=== PATIENT | female | born 1965 | race Caucasian/White ===

== ENCOUNTER 2018-03-16 13:25 | Observation (INO) | payer MEDICARE, MEDICAID ==
[2018-03-16] MEDS ORDERED: KETOROLAC TROMETHAMINE 60 MG/2 ML SDV IM ONE (13:47)
--- NOTE | 2018-03-16 13:48 | ER Document Report ---
ED Medical Screen (RME) - General Chief Complaint: Altered Mental Status Stated Complaint: ALTERED MENTAL STATUS Time Seen by Provider: 03/16/18 13:45 Notes: 52 years old female with a history of cervical spine surgery woke up this morning with drowsy headache neck pain. Therefore presented to the ED. Denies taking any pain medications. On examination appeared drowsy, not very cooperative. TRAVEL OUTSIDE OF THE [place] IN LAST 30 DAYS: No - Related Data Allergies/Adverse Reactions: erythromycin base Allergy (Verified 03/16/18 13:26) iodine Allergy (Verified 03/16/18 13:26) Physical Exam - Vital signs Vitals: Temp Pulse Resp BP Pulse Ox 97.8 F 123 H 20 168/103 H 98 03/16/18 13:29 03/16/18 13:29 03/16/18 13:29 03/16/18 13:29 03/16/18 13:29 Course - Vital Signs Vital signs: Temp Pulse Resp BP Pulse Ox 97.8 F 123 H 20 168/103 H 98 03/16/18 13:29 03/16/18 13:29 03/16/18 13:29 03/16/18 13:29 03/16/18 13:29
[2018-03-16 14:24] LABS: ABSOLUTE BASOPHILS # (AUTO) 0.1 10^3/uL (0.0-0.2); ABSOLUTE EOSINOPHILS # (AUTO) 0.1 10^3/uL (0.0-0.6); ABSOLUTE LYMPHOCYTES (AUTO) 2.9 10^3/uL (0.5-4.7); ABSOLUTE MONOCYTES (AUTO) 0.6 10^3/uL (0.1-1.4); ABSOLUTE NEUT (AUTO) 5.2 10^3/uL (1.7-8.2); BASOPHILS % (AUTO) 0.6 % (0-2); EOSINOPHILS % (AUTO) 1.5 % (0-6); HEMATOCRIT 43.4 % (36.0-47.0); HEMOGLOBIN 14.3 g/dL (12.0-15.5); LYMPHOCYTES % (AUTO) 32.5 % (13-45); MEAN CORPUSCULAR HEMOGLOBIN 29.3 pg (27.0-33.4); MEAN CORPUSCULAR VOLUME 89 fl (80-97); MONOCYTES % (AUTO) 6.5 % (3-13); PLATELET COUNT 251 10^3/uL (150-450); RED BLOOD COUNT 4.88 10^6/uL (3.72-5.28); RED CELL DISTRIBUTION WIDTH 15.2 % (11.5-14.0); SEGMENTED NEUTROPHILS % (AUTO) 58.9 % (42-78); TOTAL CELLS COUNTED % (AUTO) 100 %; WHITE BLOOD COUNT 8.8 10^3/uL (4.0-10.5)
--- NOTE | 2018-03-16 14:24 | RADIOLOGY REPORT (SQ) ---
EXAM DESCRIPTION: CT HEAD WITHOUT COMPLETED DATE/TIME: 03/16/2018 2:16 pm REASON FOR STUDY: Headache headache COMPARISON: None. TECHNIQUE: Axial images acquired through the brain without intravenous contrast. Images reviewed wi th bone, brain and subdural windows. Additional sagittal and coronal reconstructions were generated. Images stored on PACS. All CT scanners at this facility use dose modulation, iterative reconstruction, and/or weight based d osing when appropriate to reduce radiation dose to as low as reasonably achievable (ALARA). [facility]: Dose Right [facility]: CareDose [facility]: Dose Right [facility]: Teradose 4D [facility]: Ascender Software RADIATION DOSE: CT Rad equipment meets quality standard of care and radiation dose reduction techniq ues were employed. CTDIvol: 53.2 mGy. DLP: 991 mGy-cm. mGy. LIMITATIONS: None. FINDINGS: VENTRICLES: Normal size and contour. CEREBRUM: No masses. No hemorrhage. No midline shift. No evidence for acute infarction. Normal gra y/white matter differentiation. No areas of low density in the white matter. CEREBELLUM: No masses. No hemorrhage. No alteration of density. No evidence for acute infarction. EXTRAAXIAL SPACES: No fluid collections. No masses. ORBITS AND GLOBE: No intra- or extraconal masses. Normal contour of globe without masses. CALVARIUM: No fracture. PARANASAL SINUSES: No fluid or mucosal thickening. SOFT TISSUES: No mass or hematoma. OTHER: No other significant finding. IMPRESSION: NORMAL BRAIN CT WITHOUT CONTRAST. EVIDENCE OF ACUTE STROKE: NO. COMMENT: Quality ID # [id number]: Final reports with documentation of one or more dose reduction techniques (e.g., Automated exposure control, adjustment of the mA and/or kV according to patient size, use of iterative reconstruction technique) TECHNICAL DOCUMENTATION: JOB ID: [id number] [employer]- All Rights Reserved Reading location - IP/workstation name: [email or web address]
[2018-03-16] MEDS ORDERED: NORMAL SALINE 1000 ML 1,000 ML IV ONE (14:32)
[2018-03-16] MEDS ORDERED: MECLIZINE HCL 25 MG TABLET PO ONE (14:32)
--- NOTE | 2018-03-16 14:38 | ER Document Report ---
ED General - General Chief Complaint: Altered Mental Status Stated Complaint: ALTERED MENTAL STATUS Time Seen by Provider: 03/16/18 13:45 TRAVEL OUTSIDE OF THE [place] IN LAST 30 DAYS: No - HPI Notes: Patient is a 52-year-old female with a history of COPD, hypertension, chronic neck and back pain, previous CVAs with the last in 2012 who presents to the ED with mother complaining of headache (global, not worst of her life, not sudden like a thunder clap), increased neck pain, dizziness, fatigue/weakness, and some slurring of her speech that began at 0 700 this morning. Mother states that she noticed the mild slurring resolved after a couple hours. Patient states that she was out shopping with her grandmother when she decided to come to the emergency room for evaluation as her symptoms were not significantly improving. Patient states that she had similar symptoms with previous strokes. She had otherwise been eating and drinking without any difficulties. She is urinating normally and having normal bowel movements. Patient states that she has also had some intermittent chest tightness over the last week that does not radiate. Patient states that she currently does not have any chest discomfort, and primarily is focused on her other symptoms. She is not on any blood thinning medication currently. + post nasal drip. Denies any injury. Denies any fever, head injury, changes in vision/mentation/hearing, sore throat, palpitations, syncope, cough, shortness of breath, wheeze, dyspnea, abdominal pain, nausea/vomiting/diarrhea, urinary retention, dysuria, hematuria, loss of control of bowel or bladder, numbness/tingling, saddle anesthesia, muscle paralysis/weakness, or rash. - Related Data Allergies/Adverse Reactions: erythromycin base Allergy (Verified 03/16/18 13:26) iodine Allergy (Verified 03/16/18 13:26) Past Medical History - Social History Smoking Status: Current Every Day Smoker Family History: Reviewed & Not Pertinent Patient has suicidal ideation: No Patient has homicidal ideation: No Renal/ Medical History: Denies: Hx Peritoneal Dialysis Review of Systems - Review of Systems -: Yes All other systems reviewed and negative Physical Exam - Vital signs Vitals: Temp Pulse Resp BP Pulse Ox 97.8 F 123 H 20 168/103 H 98 03/16/18 13:29 03/16/18 13:29 03/16/18 13:29 03/16/18 13:29 03/16/18 13:29 Notes: Pt's pulse is 80 during my exam. Not tachycardic* - Notes Notes: PHYSICAL EXAMINATION: GENERAL: Well-appearing, well-nourished and in no acute distress. A&ox4. Answers questions appropriately, maintains eye contact. No obvious slurring noted. HEAD: Atraumatic, normocephalic. Non-tender. EYES: Pupils equal round and reactive to light, extraocular movements intact, sclera anicteric, conjunctiva are normal. No nystagmus. vis sawyer intact. ENT: EAC clear b/l. TM's intact b/l without erythema, fluid, or perforation. Nares patent and without discharge. oropharynx clear without exudates. No tonsilar hypertrophy or erythema. Moist mucous membranes. No sinus tenderness. NECK: Normal range of motion, supple without lymphadenopathy. No obvious rigidity/meningismus (pt has a fusion). No midline tenderness. + paraspinal mm tenderness, correlates with pain. Chest: + mild tenderness left chest wall, reproducible. LUNGS: Breath sounds clear to auscultation bilaterally and equal. No wheezes rales or rhonchi. HEART: Regular rate and rhythm without murmurs, rubs, gallops. ABDOMEN: Soft, nontender, nondistended abdomen. No guarding, no rebound. Normal bowel sounds present. No CVA tenderness bilaterally. Musculoskeletal: Ext b/l: FROM to passive/active. Strength 5+/5. No deficits noted. No bony tenderness of extremities. Extremities: No cyanosis, clubbing, or edema b/l. Peripheral pulses 2+. Capillary refill less than 2 seconds. Daisy neg b/l. No asymmetry. NEUROLOGICAL: NIH 0. GCS 15. Cranial nerves grossly intact. Normal speech, normal gait. Normal sensory, motor exams. Reflexes 2+ b/l. LAURA's negative. Pronator drift negative. Heel/moon, finger/nose wnl. PSYCH: Normal mood, normal affect. SKIN: Warm, Dry, normal turgor, no rashes or lesions noted. Course - Re-evaluation Re-evalutation: 03/16/18 15:28 Patient is an afebrile, well-hydrated, 52-year-old female who presents to the ED with chest wall pain/chest pain unspecified, dizziness, headache, resolved slurring speech. Vitals are acceptable without any significant tachycardia, tachypnea, or hypoxia. PE is otherwise unremarkable for any focal neurological deficits at this time. NIH 0, GCS 15, cranial nerves grossly intact. CT scan of the head was unremarkable as well as a chest x-ray. CBC, CMP, cardiac enzyme /EKG, coags, urinalysis were unremarkable for any acute pathology. Patient was given Toradol at triage. I did order for meclizine as well as fentanyl at this time. Fluids are running. I did review with patient that her symptoms are concerning for possible TIA and I am using more caution as she is a higher risk due to previous history. I did review with hospitalist, Dr. Chew, who accepted patient for admit. Patient is in agreement with plan. - Vital Signs Vital signs: Temp Pulse Resp BP Pulse Ox 97.8 F 80 16 121/75 97 03/16/18 13:29 03/16/18 14:20 03/16/18 15:01 03/16/18 15:01 03/16/18 15:01 - Laboratory Result Diagrams: 03/16/18 14:00 03/16/18 14:00 Laboratory results interpreted by me: 03/16/18 03/16/18 03/16/18 14:00 14:00 14:45 RDW 15.2 H Sodium 147.2 H Chloride 108 H Urine Ketones TRACE H Urine Urobilinogen 2.0 H Discharge - Discharge Clinical Impression: TIA (transient ischemic attack) Chest pain, unspecified Qualifiers: Chest pain type: unspecified Qualified Code(s): R07.9 - Chest pain, unspecified Headache Qualifiers: Headache type: unspecified Headache chronicity pattern: acute headache Intractability: not intractable Qualified Code(s): R51 - Headache Condition: Stable Disposition: ADMITTED INPATIENT Admitting Provider: Hospitalist - Dr. Chew Unit Admitted: [facility]
[2018-03-16] MEDS ORDERED: FENTANYL CITRATE INJ/PF 100 MCG/2 ML AMPUL IV ONE (14:41)
[2018-03-16 14:44] LABS: ALANINE AMINOTRANSFERASE 31 U/L (9-52); ALKALINE PHOSPHATASE 61 U/L (38-126); ANION GAP 11 (5-19); ASPARTATE AMINO TRANSFERASE 16 U/L (14-36); BILIRUBIN,DIRECT 0.3 mg/dL (0.0-0.4); BILIRUBIN,TOTAL 0.3 mg/dL (0.2-1.3); BLOOD UREA NITROGEN 17 mg/dL (7-20); CALCIUM 9.7 mg/dL (8.4-10.2); CARBON DIOXIDE 28 mmol/L (22-30); CHLORIDE 108 mmol/L (98-107); GLUCOSE 96 mg/dL (75-110); POTASSIUM 4.2 mmol/L (3.6-5.0); SODIUM 147.2 mmol/L (137-145); TOTAL PROTEIN 6.9 g/dL (6.3-8.2)
--- NOTE | 2018-03-16 15:00 | RADIOLOGY REPORT (SQ) ---
EXAM DESCRIPTION: CHEST SINGLE VIEW COMPLETED DATE/TIME: 03/16/2018 2:51 pm REASON FOR STUDY: chest pain COMPARISON: None. EXAM PARAMETERS: NUMBER OF VIEWS: One view. TECHNIQUE: Single frontal radiographic view of the chest acquired. RADIATION DOSE: NA LIMITATIONS: None. FINDINGS: LUNGS AND PLEURA: Minimal left basilar atelectasis. Remainder of the lungs are well infla elfego and free of focal infiltrates. No pleural effusion. No pneumothorax. MEDIASTINUM AND HILAR STRUCTURES: No masses. Contour normal. HEART AND VASCULAR STRUCTURES: Heart normal in size. Normal vasculature. BONES: Lower cervical fusion hardware HARDWARE: None in the chest. OTHER: No other significant finding. IMPRESSION: Minimal left basilar atelectasis or scarring TECHNICAL DOCUMENTATION: JOB ID: [id number] [employer]- All Rights Reserved Reading location - IP/workstation name: [email or web address]
[2018-03-16 15:04] LABS: INTERNATIONAL RATION (INR) 0.84; PROTHROMBIN TIME 11.9 SEC (11.4-15.4)
[2018-03-16 15:05] LABS: PARTIAL THROMBOPLASTIN TIME 26.9 SEC (23.5-35.8)
[2018-03-16 15:09] LABS: APPEARANCE,URINE SLIGHTLY-CLOUDY; BILIRUBIN,URINE NEGATIVE (NEGATIVE); COLOR,URINE YELLOW; GLUCOSE, URINE NEGATIVE (NEGATIVE); KETONES,URINE TRACE mg/dL (NEGATIVE); LEUKOCYTE ESTERASE,URINE NEGATIVE (NEGATIVE); NITRITE,URINE NEGATIVE (NEGATIVE); PROTEIN,URINE NEGATIVE (NEGATIVE); URINE SPECIFIC GRAVITY 1.026
[2018-03-16 15:12] LABS: ALCOHOL < 10 mg/dL (NONE DETECTED)
[2018-03-16 15:14] LABS: CREATINE KINASE MB 0.28 ng/mL (<4.55)
[2018-03-16 15:15] LABS: TROPONIN I < 0.012 ng/mL
[2018-03-16 15:23] LABS: URINE AMPHETAMINES SCREEN NEGATIVE; URINE BARBITURATES SCREEN NEGATIVE; URINE BENZODIAZEPINES SCREEN UNCONFIRMED POSITIVE; URINE COCAINE SCREEN NEGATIVE; URINE MARIJUANA (THC) SCREEN NEGATIVE; URINE METHADONE SCREEN NEGATIVE; URINE PHENCYCLIDINE SCREEN NEGATIVE
[2018-03-16] MEDS ORDERED: ENOXAPARIN SODIUM INJ 40 MG/0.4 ML DISP.SYRIN SUBCUT SCH (16:00)
[2018-03-16] MEDS ORDERED: MORPHINE SULFATE 10 MG/ML INJ IV PRN (17:43)
[2018-03-16] MEDS ORDERED: NORMAL SALINE 1000 ML 1,000 ML IV PRN (17:43)
[2018-03-16] MEDS ORDERED: ASPIRIN 81 MG TABLET, CHEWABLE PO SCH (17:45)
--- NOTE | 2018-03-16 17:50 | PDOC H&P ---
History of Present Illness Admission Date/PCP: 03/16/18 15:33 FAUSTO JACKSON MD Patient complains of: Headache and dizziness and neck pain History of Present Illness: JEANIE DAVEY is a 52 year old female who presents to the emergency room today due to constellation of symptoms including headache, neck pain, dizziness, fatigue and slurred speech. The symptoms started today when she woke up. Her mother noticed her speech was slurred. Her headache slightly improved. She speaks at her baseline now. She had history of neck surgery in the past. she also tells me that she has a history of stroke. Currently neuro exam is normal but she still was residual neck pain and headache. ER physician was admit this patient for TIA workup. Past Medical History Cardiac Medical History: Reports: Hypertension Pulmonary Medical History: Reports: Chronic Obstructive Pulmonary Disease (COPD) Neurological Medical History: Reports: Ischemic CVA, Other - Spinal stenosis Past Surgical History Past Surgical History: Reports: Other - Neck surgery Social History Smoking Status: Current Every Day Smoker Family History Family History: Reviewed & Not Pertinent Parental Family History Reviewed: Yes Children Family History Reviewed: Yes Sibling(s) Family History Reviewed.: Yes Medication/Allergy Allergies/Adverse Reactions: erythromycin base Allergy (Verified 03/16/18 13:26) iodine Allergy (Verified 03/16/18 13:26) Physical Exam Vital Signs: Temp Pulse Resp BP Pulse Ox 97.8 F 82 16 143/87 H 96 03/16/18 13:29 03/16/18 15:00 03/16/18 16:01 03/16/18 16:00 03/16/18 16:01 Intake & Output 03/15/18 03/16/18 03/17/18 06:59 06:59 06:59 Intake Total 1999 Balance 1999 General appearance: PRESENT: no acute distress, well-developed, well-nourished Head exam: PRESENT: atraumatic, normocephalic Eye exam: PRESENT: conjunctiva pink, EOMI, PERRLA. ABSENT: scleral icterus Ear exam: PRESENT: normal external ear exam Mouth exam: PRESENT: moist, tongue midline Neck exam: ABSENT: carotid bruit, JVD, lymphadenopathy, thyromegaly Respiratory exam: PRESENT: clear to auscultation seamus. ABSENT: rales, rhonchi, wheezes Cardiovascular exam: PRESENT: RRR. ABSENT: diastolic murmur, rubs, systolic murmur Pulses: PRESENT: normal dorsalis pedis pul Vascular exam: PRESENT: normal capillary refill GI/Abdominal exam: PRESENT: normal bowel sounds, soft. ABSENT: distended, guarding, mass, organolmegaly, rebound, tenderness Rectal exam: PRESENT: deferred Extremities exam: PRESENT: full ROM. ABSENT: calf tenderness, clubbing, pedal edema Neurological exam: PRESENT: alert, awake, oriented to person, oriented to place , oriented to time, oriented to situation, CN II-XII grossly intact. ABSENT: motor sensory deficit Psychiatric exam: PRESENT: appropriate affect, normal mood. ABSENT: homicidal ideation, suicidal ideation Skin exam: PRESENT: dry, intact, warm. ABSENT: cyanosis, rash Results Impressions: Head CT 03/16/18 13:46 IMPRESSION: NORMAL BRAIN CT WITHOUT CONTRAST. EVIDENCE OF ACUTE STROKE: NO. Chest X-Ray 03/16/18 14:32 IMPRESSION: Minimal left basilar atelectasis or scarring Assessment & Plan - Diagnosis (1) Headache Qualifiers: Headache type: unspecified Headache chronicity pattern: acute headache Intractability: not intractable Qualified Code(s): R51 - Headache - Plan Summary Plan Summary: This patient will be admitted for observation to telemetry bed We will get MRI of the brain, echocardiogram and carotid ultrasound We will also get an x-ray of her cervical spine Check orthostatic vital signs as she still slightly dizzy We will start her on aspirin We will check lipid profile We will continue her chronic medications once they are reconciled in the system
--- NOTE | 2018-03-16 17:53 | EKG REPORT ---
SEVERITY:- ABNORMAL ECG - SINUS RHYTHM LEFT ATRIAL ABNORMALITY NONSPECIFIC ST-T CHANGES- INFERIOR LEADS : Confirmed by: Jay Castillo MD 16-Mar-2018 17:52:06
[2018-03-16 18:24] LABS: CHOLESTEROL 186.53 mg/dL (0-200); TRIGLYCERIDES 99 mg/dL (<150)
[2018-03-16 18:35] LABS: DIRECT LDL 78 mg/dL (<100)
--- NOTE | 2018-03-16 18:37 | RADIOLOGY REPORT (SQ) ---
EXAM DESCRIPTION: CERV SP 3 VIEW OR LESS COMPLETED DATE/TIME: 03/16/2018 6:24 pm REASON FOR STUDY: Neck pain R42 DIZZINESS AND GIDDINESS COMPARISON: None. NUMBER OF VIEWS: Three views. TECHNIQUE: AP, lateral and odontoid radiographic images acquired of the cervical spine. LIMITATIONS: None. FINDINGS: MINERALIZATION: Normal. ALIGNMENT: Anatomic. VERTEBRAE: Vertebral bodies of normal height. DISCS: Surgical changes at C4-5 and C5-6 with disc implants and anterior hardware. HARDWARE: None in the spine. SOFT TISSUES: No masses or calcifications. Lung apices clear. OTHER: No other significant finding. IMPRESSION: Surgical changes with no acute abnormality. TECHNICAL DOCUMENTATION: JOB ID: [id number] [employer]- All Rights Reserved Reading location - IP/workstation name: [email or web address]
[2018-03-16 18:49] VITALS: BP 152/100
--- NOTE | 2018-03-17 07:28 | PDOC DISCHARGE SUMMARY ---
General - Admit/Disc Date/PCP Admission Date/Primary Care Provider: 03/16/18 15:33 FAUSTO JACKSON MD Discharge Date: 03/16/18 - Additional Information Home Medications: Albuterol Sulfate [Albuterol Sulfate 2.5mg/3 mL] 1 vial IH Q4 PRN 03/16/18 Albuterol Sulfate [Proair Hfa Inhalation Aerosol 8.5 gm Mdi] 1 puff IH Q4 PRN Alprazolam [Xanax 0.5 mg Tablet] 0.5 mg PO 03/16/18 Atorvastatin Calcium [Lipitor 40 mg Tablet] 40 mg PO QHS 03/16/18 Baclofen [Baclofen 10 mg Tablet] 10 mg PO 03/16/18 Budesonide/Formoterol Fumarate [Symbicort Hfa 80-4.5 Mcg Inhaler 6.9 gm] 1 puff IH 03/16/18 Duloxetine HCl [Cymbalta] 60 mg PO 03/16/18 Hydroxyzine Pamoate [Vistaril 25 mg Capsule] 25 mg PO DAILY 03/16/18 Meloxicam [Mobic] 15 mg PO 03/16/18 Metoprolol Tartrate [Lopressor 25 mg Tablet] 25 mg PO Q12 03/16/18 Montelukast Sodium [Singulair 10 mg Tablet] 10 mg PO QHS 03/16/18 Oxybutynin Chloride [Oxybutynin Chloride ER] 10 mg PO 03/16/18 Prazosin HCl [Minipress] 2 mg PO 03/16/18 Pregabalin [Lyrica 100 Mg Capsule] 100 mg PO 03/16/18 Ropinirole HCl [Requip 0.25 Mg Tablet] 0.25 mg PO 03/16/18 Topiramate [Topamax 100 Mg Tablet] 200 mg PO 03/16/18 History of Present Illness History of Present Illness: JEANIE DAVEY is a 52 year old female who presents to the emergency room today due to constellation of symptoms including headache, neck pain, dizziness, fatigue and slurred speech. The symptoms started today when she woke up. Her mother noticed her speech was slurred. Her headache slightly improved. She speaks at her baseline now. She had history of neck surgery in the past. she also tells me that she has a history of stroke. Currently neuro exam is normal but she still was residual neck pain and headache. ER physician was admit this patient for TIA workup. Hospital Course Hospital Course: patient left AMA last night Physical Exam Vital Signs: Temp Pulse Resp BP Pulse Ox 98.2 F 84 22 H 152/100 H 97 03/16/18 17:56 03/16/18 18:00 03/16/18 18:41 03/16/18 18:41 03/16/18 18:41 Intake & Output 03/16/18 03/17/18 03/18/18 06:59 06:59 06:59 Intake Total 1999 Balance 1999 Results Impressions: Cervical Spine X-Ray 03/16/18 00:00 IMPRESSION: Surgical changes with no acute abnormality. Head CT 03/16/18 13:46 IMPRESSION: NORMAL BRAIN CT WITHOUT CONTRAST. EVIDENCE OF ACUTE STROKE: NO. Chest X-Ray 03/16/18 14:32 IMPRESSION: Minimal left basilar atelectasis or scarring Qualifiers - * PATIENT BEING DISCHARGED WITH ANY OF THE FOLLOWING DIAGNOSIS: No
== END 2018-03-16 19:15 | disposition left against medical advice (07) ==
LOC: ER 13:25 → EH 15:33 → INTOOBSV 15:33 → 3S 19:04
PROVIDERS: ADMIT Internal Medicine; ATTEND Internal Medicine
DX: R51 Headache (principal); M54.2 Cervicalgia; R42 Dizziness and giddiness; G89.29 Other chronic pain; R53.83 Other fatigue; R47.81 Slurred speech; J98.11 Atelectasis; F17.200 Nicotine dependence, unspecified, uncomplicated; R09.82 Postnasal drip; R53.1 Weakness; R40.0 Somnolence; R07.89 Other chest pain; Z53.21 Procedure and treatment not carried out due to patient leaving prior to being seen by health care provider; Z86.73 Personal history of transient ischemic attack (TIA), and cerebral infarction without residual deficits; Z98.1 Arthrodesis status; Z86.69 Personal history of other diseases of the nervous system and sense organs
CPT/HCPCS: 93005; 99285; 96372; 96374; 36415; 82553; 80307 ×2; 82550; 85025; 85610; 85730; 80053; 81001; 84484; 80061; 72040; 71045; 70450; 93010; A9270 ×2; J1885; J3010; J1650; J7030

== ENCOUNTER 2018-03-24 23:47 | Emergency (ER) | payer MEDICARE, MEDICAID ==
--- NOTE | 2018-03-25 01:30 | RADIOLOGY REPORT (SQ) ---
PROCEDURE: CLINICAL HISTORY: 52 years Female fall, ams COMPLETED DATE/TME: 03/25/2018 00:50 COMPARISON: None. TECHNIQUE: Contiguous axial CT images obtained through the brain without IV contrast. This exam was performed according to our department optimization program which includes automated exposure control, adjustment of the mA and/or kv according to patient size and/or use of iterative reconstruction technique. FINDINGS: The ventricles and sulci are within normal limits for the patient's age. No midline shift or mass effect. No masses identified. No acute intracranial hemorrhage. No fluid or significant mucosal thickening in the visualized paranasal sinuses. No depressed calvarial fractures. IMPRESSION: No acute intracranial abnormality is identified.
[2018-03-25 01:41] LABS: ANION GAP 9 (5-19); BLOOD UREA NITROGEN 20 mg/dL (7-20); CALCIUM 8.9 mg/dL (8.4-10.2); CARBON DIOXIDE 28 mmol/L (22-30); CHLORIDE 106 mmol/L (98-107); GLUCOSE 117 mg/dL (75-110); POTASSIUM 4.3 mmol/L (3.6-5.0); SODIUM 142.6 mmol/L (137-145)
[2018-03-25 01:42] LABS: ALCOHOL < 10 mg/dL (NONE DETECTED)
[2018-03-25 01:44] LABS: ABSOLUTE EOSINOPHILS # (AUTO) 0.1 10^3/uL (0.0-0.6); ABSOLUTE MONOCYTES (AUTO) 0.4 10^3/uL (0.1-1.4); ABSOLUTE NEUT (AUTO) 3.9 10^3/uL (1.7-8.2); BASOPHILS % (AUTO) 0.4 % (0-2); HEMATOCRIT 40.1 % (36.0-47.0); HEMOGLOBIN 13.2 g/dL (12.0-15.5); LYMPHOCYTES % (AUTO) 40.3 % (13-45); MEAN CORPUSCULAR HEMOGLOBIN 29.4 pg (27.0-33.4); MEAN CORPUSCULAR HGB CONC 32.9 g/dL (32.0-36.0); MEAN CORPUSCULAR VOLUME 89 fl (80-97); MONOCYTES % (AUTO) 5.6 % (3-13); PLATELET COUNT 260 10^3/uL (150-450); RED BLOOD COUNT 4.49 10^6/uL (3.72-5.28); RED CELL DISTRIBUTION WIDTH 15.1 % (11.5-14.0); SEGMENTED NEUTROPHILS % (AUTO) 51.7 % (42-78); TOTAL CELLS COUNTED % (AUTO) 100 %; WHITE BLOOD COUNT 7.5 10^3/uL (4.0-10.5)
--- NOTE | 2018-03-25 03:12 | ER Document Report ---
ED General - General Chief Complaint: Fall Injury Stated Complaint: SYNCOPE Time Seen by Provider: 03/25/18 00:31 Notes: Patient is a 52-year-old female with a past medical history of insomnia, anxiety , prior strokes, recently seen on 03/16 for possible TIA, left AMA who presents with a fall. Initial presenting concern was for the possibility of slurred speech although patient and her brother both deny this claim. They state that the patient always talks like this after taking her for sedating medications for sleep. Apparently she stated it later tonight than normal but still take her medications that the normal hour. After having conversation with her brother she stood up from the couch and walked to her room. The mother states that he heard sounds like she had fallen and went to check on her. He states that she was sitting in a chair and was slumped over asking for help to sit up. The patient does not recall what happened but at this time complains of a throbbing, aching pain to her bilateral ankles as she believes she twisted them when she fell to the ground. She is uncertain whether or not she hit her head tonight. She currently denies any weakness, numbness, confusion or headache. Denies a history of similar symptoms in the past. She has not contacted her general doctor regarding today's concerns. She states that her only concern is her ankles and then she would like to leave. TRAVEL OUTSIDE OF THE [place] IN LAST 30 DAYS: No - Related Data Allergies/Adverse Reactions: erythromycin base Allergy (Verified 03/16/18 13:26) fentanyl Allergy (Verified 03/25/18 00:18) iodine Allergy (Verified 03/16/18 13:26) Past Medical History - General Information source: Patient, Relative - Social History Smoking Status: Current Every Day Smoker Chew tobacco use (# tins/day): No Frequency of alcohol use: None Drug Abuse: None Lives with: Family Family History: Reviewed & Not Pertinent Patient has suicidal ideation: No Patient has homicidal ideation: No - Past Medical History Cardiac Medical History: Reports: Hx Hypercholesterolemia, Hx Hypertension Pulmonary Medical History: Reports: Hx COPD Neurological Medical History: Reports: Hx Seizures Renal/ Medical History: Denies: Hx Peritoneal Dialysis Past Surgical History: Reports: Hx Hysterectomy, Hx Oral Surgery, Other - Neck surgery Review of Systems - Review of Systems Notes: Constitutional: Negative for fever. Eyes: Negative for visual changes. ENT: Negative for facial injury Cardiovascular: Negative for chest injury. Respiratory: Negative for shortness of breath. Gastrointestinal: Negative for abdominal injury. Genitourinary: Negative for genital injury Musculoskeletal: Positive for bilateral ankle pain, left knee pain Skin: Negative for laceration/abrasions. Neurological: Negative for head injury. Physical Exam - Vital signs Vitals: Temp Resp BP Pulse Ox 97.9 F 11 L 111/55 L 97 03/24/18 23:55 03/24/18 23:55 03/24/18 23:55 03/24/18 23:55 Interpretation: Normal Notes: PHYSICAL EXAMINATION: GENERAL: Well-appearing, no acute distress. HEAD: Atraumatic, normocephalic. EYES: Pupils equal round and reactive to light, extraocular movements intact, sclera anicteric, conjunctiva are normal. ENT: nares patent, no oral pharyngeal trauma. No hemotympanum, no Ramesh's sign , no raccoon eyes. NECK: No midline cervical spine tenderness. Patient able to move their head to 45 bilaterally without any discomfort. LUNGS: Breath sounds clear to auscultation bilaterally and equal. No wheezes rales or rhonchi. HEART: Regular rate and rhythm without murmurs. CHEST WALL: No ecchymosis over the chest wall. ABDOMEN: Soft, nontender, normoactive bowel sounds. No guarding, no rebound. No abdominal bruising EXTREMITIES: Normal range of motion, no pitting or edema. No long bone deformities. Pain on palpation of the lateral aspect of the left knee BACK: No midline spinal tenderness, step-offs, or deformities. NEUROLOGICAL: Face symmetric. Tongue protrudes midline. Extraocular motions intact. Pupils are 2 mm and equally reactive. Normal speech. 5 out of 5 strength in both the distal and proximal upper and lower extremities bilaterally. Sensation is grossly intact throughout. Finger to nose testing normal. Pronator drift normal. PSYCH: Normal mood, normal affect. SKIN: Warm, Dry, normal turgor, ecchymosis over the bilateral lateral malleoli Course - Re-evaluation Re-evalutation: 03/25/18 03:59 Patient presents after what appears to be either a syncopal versus mechanical fall episode in the context of having taken multiple sedating medications and then not having gone to bed. Initially there was some concern about possible slurred speech but it appears that the patient is mildly intoxicated from these medications and does not have any actual dysarthria or aphasia. The remainder of her neurologic examination is completely unremarkable, and a stroke scale is 0. I do not clinically suspect TIA or an acute stroke based on exam and history. CT the head unremarkable. Labs likewise unremarkable. EKG without concerning findings. The patient did have bruising over the bilateral ankles although there is no noted fracture on x-ray. She did also have pain on palpation of the left medial knee and a proximal, nondisplaced fibular fracture is noted. The patient has been placed in a knee immobilizer and given crutches. Orthopedic surgical follow-up has been recommended. The remainder of her evaluation is otherwise clear and the patient would like to be discharged home. I do not clinically suspect an acute dysrhythmia as the etiology of tonya's episode of her fall. At this time will discharge with return precautions and follow-up recommendations. Verbal discharge instructions given a the bedside and opportunity for questions given. Medication warnings reviewed. Patient is in agreement with this plan and has verbalized understanding of return precautions and the need for primary care follow-up in the next 24-72 hours. - Vital Signs Vital signs: Temp Pulse Resp BP Pulse Ox 97.9 F 81 9 L 118/63 100 03/24/18 23:55 03/25/18 00:17 03/25/18 02:01 03/25/18 02:01 03/25/18 02:01 - Laboratory Result Diagrams: 03/24/18 23:55 03/24/18 23:55 Laboratory results interpreted by me: 03/24/18 03/24/18 23:55 23:55 RDW 15.1 H Glucose 117 H - Diagnostic Test Radiology reviewed: Image reviewed, Reports reviewed Radiology results interpreted by me: 03/25/18 04:00 Left knee x-ray: Proximal fibular fracture CT head: No acute cranial bleed or mass - EKG Interpretation by Me Additional EKG results interpreted by me: 03/25/18 04:01 Sinus rhythm. Rate 73. No ST elevations or depressions. QTC is 432. Discharge - Discharge Clinical Impression: Medication side effect Fall Qualifiers: Encounter type: initial encounter Qualified Code(s): W19.XXXA - Unspecified fall, initial encounter Ankle injuries Qualifiers: Encounter type: initial encounter Laterality: unspecified laterality Qualified Code(s): S99.919A - Unspecified injury of unspecified ankle, initial encounter Fracture of left proximal fibula Qualifiers: Encounter type: initial encounter Fracture type: closed Fracture morphology: unspecified fracture morphology Qualified Code(s): S82.832A - Other fracture of upper and lower end of left fibula, initial encounter for closed fracture Condition: Good Disposition: HOME, SELF-CARE Additional Instructions: Your symptoms tonight appear to be likely related to the multitude of medications you took this evening to help you sleep. Your labs are normal. The CT scan of your head is normal. Your knee x-ray does show a fracture of your proximal fibula. These fractures do not require surgical intervention but she should follow-up with orthopedic surgery. Use crutches as needed for comfort as well as knee immobilizer as needed for comfort. For your pain: Take ibuprofen 600 mg and acetaminophen 1000 mg every 6 hours together as needed for pain. If this does not control your pain you may take 15 mg of oral morphine every 4 hours as needed. Please be very careful about using the oral morphine and only use this for severe pain. Please return for worsening pain in your knee, inability to walk due to pain, weakness, numbness, confusion, or fever of greater than 101F. Please also return for any additional symptoms that are concerning to you. Prescriptions: Morphine Sulfate [Morphine Ir 15 mg Tablet] 15 mg PO Q6HP PRN #8 tablet PRN Reason: Referrals: FAUSTO JACKSON MD [Primary Care Provider] - Follow up as needed NHUNG KUMAR MD [ACTIVE STAFF] - Follow up in 3-5 days
[2018-03-25] MEDS ORDERED: IBUPROFEN 600 MG TABLET PO ONE (03:15)
[2018-03-25] MEDS ORDERED: MORPHINE SULFATE IR 15 MG TABLET PO ONE (03:15)
[2018-03-25] MEDS ORDERED: ACETAMINOPHEN 325 MG TABLET PO ONE (03:15)
--- NOTE | 2018-03-25 03:52 | RADIOLOGY REPORT (SQ) ---
EXAM DESCRIPTION: XR ANKLE 2 VIEWS BILATERAL COMPLETED DATE/TME: 03/25/2018 01:55 CLINICAL HISTORY: 52 years Female, fall, pain COMPARISON: None. Findings: Bilateral ankle swelling. Bones, joints, and soft tissues of the XR ANKLE 2 VIEWS BILATERAL appear otherwise intact. IMPRESSION: Swelling.
--- NOTE | 2018-03-25 03:53 | RADIOLOGY REPORT (SQ) ---
EXAM DESCRIPTION: XR KNEE 1-2 VIEWS COMPLETED DATE/TME: 03/25/2018 01:55 CLINICAL HISTORY: 52 years Female, fall, pain COMPARISON: None. Findings: Oblique fracture of the proximal diaphysis of the left fibula with 0.5 cm anterior displacement/distraction.. Bones, joints, and soft tissues of the LEFT XR KNEE 2 VIEWS appear otherwise intact. IMPRESSION: Proximal left fibular shaft fracture.
[2018-03-25 05:05] VITALS: BP 122/84
--- NOTE | 2018-03-25 10:08 | EKG REPORT ---
SEVERITY:- BORDERLINE ECG - SINUS RHYTHM PROBABLE LEFT ATRIAL ABNORMALITY : Confirmed by: Jay Castillo MD 25-Mar-2018 10:07:22
== END 2018-03-25 05:07 | disposition home or self-care (01) ==
LOC: ER 23:47
DX: T50.905A Adverse effect of unspecified drugs, medicaments and biological substances, initial encounter (principal); S99.919A Unspecified injury of unspecified ankle, initial encounter; S82.832A Other fracture of upper and lower end of left fibula, initial encounter for closed fracture; M25.571 Pain in right ankle and joints of right foot; M25.572 Pain in left ankle and joints of left foot; M25.562 Pain in left knee; R55 Syncope and collapse; I10 Essential (primary) hypertension; J44.9 Chronic obstructive pulmonary disease, unspecified; F17.200 Nicotine dependence, unspecified, uncomplicated; W19.XXXA Unspecified fall, initial encounter
CPT/HCPCS: 93005; 99285; 36415; 80307; 85025; 80048; 84484; 73560; 73600; 70450; 93010; L1830; A9270 ×3

== ENCOUNTER → 2018-07-07 | Outpatient (CLI) | payer MEDICARE | LOC: WI 08:38 | PROVIDERS: ATTEND Physician Assistant | DX: Z12.31 Encounter for screening mammogram for malignant neoplasm of breast (principal); R07.9 Chest pain, unspecified | CPT/HCPCS: 77063; 77067 ==

== ENCOUNTER → 2018-08-02 | Outpatient (CLI) | payer MEDICARE ==
--- NOTE | 2018-08-07 22:08 | WOMENS IMAGING REPORT ---
EXAM DESCRIPTION: LEFT DIAGNOSTIC MAMMO W/CAD; U/S BREAST UNILAT LIMITED COMPLETED DATE/TIME: 08/02/2018 10:53 am; 08/02/2018 12:31 pm REASON FOR STUDY: NODULAR DENSITY; LEFT BREAST NODULAR DENSITY R92.2 INCONCLUSIVE MAMMOGRAM COMPARISON: 07/07/2018. TECHNIQUE: True lateral and spot compression CC image acquired. LIMITATIONS: None. FINDINGS: BREAST: left MASSES: Small nodule in the superior breast. Margins slightly indistinct. CALCIFICATIONS: No new or suspicious calcifications. ARCHITECTURAL DISTORTION: None. DEVELOPING DENSITY: None. ASYMMETRY: None noted. OTHER: No other significant findings. BREAST ULTRASOUND: TECHNIQUE: Static and dynamic grayscale images acquired of the left breast in the specific areas of c linical/mammographic concern. Selected color Doppler images recorded. ELASTOGRAPHY PERFORMED: No. LIMITATIONS: None. FINDINGS: MASS: In the superior breast at roughly 12 o'clock there is a small 2 mm hypoechoic nodule. Smooth m argins with no distal shadowing. No other sonographic findings. ELASTOGRAPHY CHARACTERISTICS: Not applicable. OTHER: No other significant finding. IMPRESSION: Small indistinct nodule in the superior breast. Possibly a tiny cyst. Since the patien t's older mammograms are not available, recommend short-term interval followup to evaluate for stabil ity. BREAST DENSITY: b. There are scattered areas of fibroglandular density. BIRAD: 3 Probably benign finding. Initial short-interval follow-up suggested. RECOMMENDATION: RECOMMENDED FOLLOW UP: Birads 3: The patient will return in 6 months for follow-up i buffy. SPECIFIC INTERVENTION/IMAGING/CONSULTATION RECOMMENDED:The patient will return for 6 month follow-up diagnostic mammography(tomosynthesis) and targeted breast ultrasound. COMMUNICATION:The imaging findings were not discussed with the patient. Her referring provider has be en notified of the findings. COMMENT: The patient has been notified of the results by letter per MQSA requirements. Additional no tification policies are in place for contacting patient with suspicious or incomplete findings. Quality ID #[id number]: The [employer] recommends an annual screening mammogram for women aged 40 years or over. This facility utilizes a reminder system to ensure that all patients receive reminder letters, and/or direct phone calls for appointments. This includes reminders for routine scr eening mammograms, diagnostic mammograms, or other Breast Imaging Interventions when appropriate. Th is patient will be placed in the appropriate reminder system. The [employer] ([employer]) has developed recommendations for screening MRI of the breast s in certain patient populations, to be used in conjunction with mammography. Breast MRI surveillanc e may be appropriate for women with more than 20% lifetime risk of developing breast cancer as deter mined by genetic testing, significant family history of the disease, or history of mantle radiation f or Hodgkins Disease. ACR Practice Guidelines 2008. TECHNICAL DOCUMENTATION: FINDING NUMBER: (1) ASSESSMENT: (1) JOB ID: [id number] [employer]- All Rights Reserved Reading location - IP/workstation name: [email or web address]
== END ==
LOC: WI 10:03
PROVIDERS: ATTEND Physician Assistant
DX: N63.20 Unspecified lump in the left breast, unspecified quadrant (principal)
CPT/HCPCS: 76642

== ENCOUNTER → 2018-08-08 | Outpatient (CLI) | payer MEDICARE ==
--- NOTE | 2018-08-08 11:57 | RADIOLOGY REPORT (SQ) ---
EXAM DESCRIPTION: HIP BILATERAL COMPLETED DATE/TIME: 08/08/2018 11:29 am REASON FOR STUDY: BILATERAL HIP PAIN M25.559 PAIN IN UNSPECIFIED HIP COMPARISON: None. NUMBER OF VIEWS: Two views. TECHNIQUE: AP pelvis and additional frog-leg view of the right and left hip. LIMITATIONS: None. FINDINGS: MINERALIZATION: Normal. PRIMARY HIP: No fracture or dislocation. No worrisome bone lesions. OPPOSITE HIP: No fracture or dislocation. No worrisome bone lesions. PUBIS AND ISCHIUM: No fracture. PELVIS: No fracture. SACRUM: No fracture or dislocation. No worrisome bone lesions. LOWER LUMBAR SPINE: No fracture or dislocation. No worrisome bone lesions. No significant disc disea se. SOFT TISSUES: No findings. OTHER: No other significant finding. IMPRESSION: NEGATIVE STUDY OF THE RIGHT AND LEFT HIPS AND PELVIS. NO RADIOGRAPHIC EVIDENCE OF ACUTE INJURY. TECHNICAL DOCUMENTATION: JOB ID: [id number] [employer]- All Rights Reserved Reading location - IP/workstation name: [email or web address]
== END ==
LOC: RAD 11:12
PROVIDERS: ATTEND Physician Assistant
DX: M25.552 Pain in left hip (principal); M25.551 Pain in right hip
CPT/HCPCS: 73522